=== PATIENT | female | born 1975 | race Caucasian/White ===

== ENCOUNTER 2017-02-24 19:33 | Emergency (ER) | payer BC ==
[~2017-02-24] VITALS: Ht 162.6 cm; Wt 72.0 kg
[2017-02-24 19:34] VITALS: Ht 162.6 cm; Wt 72.0 kg
[2017-02-24] MEDS ORDERED: HYDR-906 PO (20:09)
[2017-02-24] MEDS ORDERED: IBUP800T25 PO (20:09)
[2017-02-24] MEDS ORDERED: PENICILLIN G BENZ 1.2 MIL UNIT SYG IM ONE (20:30)
[2017-02-24 20:43] VITALS: BP 143/80; PULSE 74; RESP 20; TEMP 100
--- NOTE | 2017-02-24 21:26 | ERD ---
ER Documentation Chief Complaint Date/Time DATE: 02/24/17 TIME: 20:33 Chief Complaint cough x 1 week, sore throat, fever HPI This 41-year-old female who complains of cough from make this dry nonproductive. She claims of a sore throat today with white specks on her throat with myalgias and low-grade fevers. Her was diagnosed with strep throat yesterday and she feels she is caught as well. No headache no stiff neck no photophobia ROS All systems reviewed and are negative except as per history of present illness. Medications Home Meds Active Scripts Hydrocodone/Acetaminophen ([place] 5-325 Tablet) 1 Each Tablet, 1 TAB PO Q6H Y for PAIN, #20 TAB Prov:LEKKOS,APOSTOLOS A. DO 02/24/17 Ibuprofen* (Motrin*) 800 Mg Tab, 800 MG PO Q6H Y for PAIN AND OR ELEVATED TEMP, #30 TAB Prov:LEKKOS,APOSTOLOS A. DO 02/24/17 Allergies Allergies: Coded Allergies: No Known Allergy (Unverified , 02/24/17) PMhx/Soc History of Surgery: Yes ( X 2.) Hx Miscellaneous Medical Probl: Yes (HEMORRHAGIC CVA.) Hx Alcohol Use: Yes (SOCIALLY) Hx Substance Use: No Hx Tobacco Use: No Smoking Status: Never smoker FmHx Family History: No coronary disease Physical Exam Vitals Vital Signs Date Time Temp Pulse Resp B/P Pulse Ox O2 Delivery O2 Flow Rate FiO2 02/24/17 19:34 100.2 96 20 154/76 97 Physical Exam Const: Well-developed, well-nourished Head: Atraumatic, normocephalic Eyes: Normal Conjunctiva, PERRLA, EOMI, normal sclera, no nystagmus ENT: Normal External Ears, Nose and Mouth,, there is deep oropharyngeal erythema with exudate moist mucus membranes. Neck: Full range of motion. No meningismus, no lymphadenopathy. Resp: Clear to auscultation bilaterally, no wheezing, rhonchi, rales Cardio: Regular rate and rhythm, no murmurs, S1 S2 present Abd: Soft, non tender x 4, non distended. Normal bowel sounds, no guarding or rebound, no pulsitile abdominal masses or bruits Skin: No petechiae or rashes, no ecchymosis , no maculopapular rash Back: No midline or flank tenderness Ext: No cyanosis, or edema, FROM x 4, normal inspection, neurovascularly intact x 4 Neur: Awake and alert, STR 5/5 x 4, sensation intact x 4, no focal findings, cerebellum intact Psych: Normal Mood and Affect Results 24 hrs Current Medications Medications (Trade) Dose Ordered Sig/[place] Route PRN Reason Start Time Stop Time Status Last Admin Dose Admin Penicillin G Benzathine (Bicillin La) 1,200,000 units ONCE ONCE IM 02/24/17 20:30 02/24/17 20:31 DC 02/24/17 20:26 Procedures/MDM Received Bicillin LA Departure Diagnosis: Primary Impression: Strep pharyngitis Additional Impression: Cough Condition: Stable Patient Instructions: Pharyngitis, Strep (Presumed) WHITLEY SAUCEDA DO Feb 24, 2017 21:26
== END 2017-02-24 20:42 | disposition home or self-care (01) ==
LOC: EEVIPCON 19:33 → FTE 19:33
DX: J02.0 Streptococcal pharyngitis (principal)
CPT/HCPCS: 96372; 99284; J0561

== ENCOUNTER 2018-01-26 19:33 | Emergency (ER) | END 2018-01-26 19:51 | disposition home or self-care (01) ==